=== PATIENT | male | born 1990 | race Caucasian/White ===

== ENCOUNTER 2017-08-29 18:00 | Outpatient (CLI) | payer OTHER | END 2017-08-29 18:01 | disposition critical access hospital (66) | LOC: EMS 18:00 | PROVIDERS: ATTEND Surgery | DX: R55 Syncope and collapse (principal); R51 Headache; W22.8XXA Striking against or struck by other objects, initial encounter; W18.39XA Other fall on same level, initial encounter; Y93.G1 Activity, food preparation and clean up; Y92.511 Restaurant or cafe as the place of occurrence of the external cause; Y99.0 Civilian activity done for income or pay | CPT/HCPCS: A0425; A0427 ==

== ENCOUNTER 2017-08-29 18:18 | Emergency (ER) | payer OTHER ==
--- NOTE | 2017-08-29 20:41 | ED Physician Documentation ---
PD HPI SYNCOPE - Stated complaint Stated Complaint: SYNCOPE - Chief complaint Chief Complaint: Neuro - History obtained from History obtained from: Patient, Family - History of Present Illness Witnessed: Witnessed Timing - onset: Today Duration: Seconds Preceding symptoms: Light headed Associated symptoms: No: Seizure Contributing factors: Decreased PO intake Injury occurred: Fell, Head injury Similar symptoms before: Has not had sx before Recently seen: Not recently seen - Additional information Additional information: Patient is a 27 year old male with no significant past medical history who is presenting to the emergency department for syncope. patient states that he was called into work this evening. patient states that he had an episode where he got dizzy and passed out. Patient states that he hit his head. Patient does not know how long he was out for but thinks only about a minute. Upon initial evaluation in the emergency department patient states that he feels better and just wants to go home. Review of Systems Constitutional: denies: Fever, Chills Eyes: denies: Loss of vision, Photophobia Ears: denies: Ear pain, Drainage/discharge Nose: denies: Congestion Throat: denies: Sore throat Cardiac: denies: Chest pain / pressure, Palpitations, Calf pain Respiratory: denies: Cough GI: denies: Nausea, Vomiting, Constipation, Diarrhea : reports: Reviewed and negative Skin: denies: Lesions, Abrasion (s), Laceration (s) Neurologic: reports: Syncope, Headache, Head injury. denies: Seizure Immunocompromised: denies: Immunocompromised PD PAST MEDICAL HISTORY - Present Medications Home Medications: Ambulatory Orders Medication Instructions Recorded Confirmed No Known Home Medications [No 08/29/17 08/29/17 Known Home Medications] - Allergies Allergies/Adverse Reactions: Allergies Allergy/AdvReac Type Severity Reaction Status Date / Time No Known Drug Allergies Allergy Verified 08/29/17 18:30 - Social History Does the pt smoke?: No Smoking Status: Never smoker PD ED PE NORMAL - Vitals Vital signs reviewed: Yes - General General: Alert and oriented X 3, No acute distress, Well developed/nourished - HEENT HEENT: PERRL, Moist mucous membranes, Pharynx benign, Dentition benign - Neck Neck: Supple, no meningeal sign, No bony TTP - Cardiac Cardiac: RRR, No murmur - Respiratory Respiratory: No respiratory distress - Abdomen Abdomen: Soft, Non tender, Non distended - Derm Derm: Normal color, Warm and dry, No rash - Extremities Extremities: No deformity - Neuro Neuro: Alert and oriented X 3, asphalt blender 2-12 intact, No motor deficit, No sensory deficit, Normal speech - Psych Psych: Normal mood, Normal affect PD ED PE EXPANDED - HEENT HEENT: Head injury (mild tenderness to medial brow, no step offs, no laceration , no gross deformity) Results - Vitals Vitals: Vital Signs - 24 hr 08/29/17 08/29/17 08/29/17 18:28 20:45 20:55 Temperature 36.0 C L Heart Rate 68 66 66 Respiratory 16 16 16 Rate Blood Pressure 113/58 L 113/68 113/68 O2 Saturation 98 100 100 Oxygen O2 Source Room air PD MEDICAL DECISION MAKING - ED course Complexity details: reviewed old records, re-evaluated patient, considered differential, d/w patient, d/w family ED course: Patient was seen and examined at bedside. Patient was well appearing and stated that he did not want any work up at this time. patient states that he did not eat or drink anything and he things that it might be it. Patient states that he will come back if it happens again, but he just wanted to go home. Patient required no further work up and was stable for discharge with outpatient follow up. Departure - Departure Disposition: 01 Home, Self Care Clinical Impression: Syncope Condition: Good Instructions: ED Syncope Vasovagal Follow-Up: primary,care provider [Other] Comments: It is difficult to say what caused your symptoms exactly without checking thing out. It is important that you return to the emergency department if your symptoms return or worsen at any time. Discharge Date/Time: 08/29/17 20:57
[2017-08-29 20:47] VITALS: BP 113/68
== END 2017-08-29 20:57 | disposition home or self-care (01) ==
LOC: ED 18:18
DX: R55 Syncope and collapse (principal)
CPT/HCPCS: 99283

== ENCOUNTER 2018-02-09 22:34 | Emergency (ER) | payer MEDICAID ==
[2018-02-09] MEDS ORDERED: CLINDAMYCIN 900 MG/50 ML 50 ML IV ONE (22:47)
[2018-02-09] MEDS ORDERED: KETOROLAC 60 MG/2 ML VIAL IVP STA (22:47)
--- NOTE | 2018-02-09 22:49 | ED Physician Documentation ---
History of Present Illness - Stated complaint Stated Complaint: FACE SWELLING - Chief complaint Chief Complaint: Heent - History obtained from History obtained from: Patient - History of Present Illness Timing: Other (He has had ongoing problems with the left mandibular molar. Saw dentist 3 weeks ago put him on antibiotics which he has been intermittently compliant with. Swelling came back yesterday with moderate pain but no fevers. Over the left jaw.) Review of Systems Constitutional: denies: Fever, Chills Throat: denies: Oral lesions / sores Cardiac: denies: Chest pain / pressure, Palpitations Respiratory: denies: Dyspnea, Cough PD PAST MEDICAL HISTORY - Present Medications Home Medications: Ambulatory Orders Medication Instructions Recorded Confirmed Clindamycin [Cleocin] 300 mg PO Q6H 10 Days capsule 02/09/18 Meloxicam [Mobic] 7.5 mg PO BIDWM PRN #15 tablet 02/09/18 - Allergies Allergies/Adverse Reactions: Allergies Allergy/AdvReac Type Severity Reaction Status Date / Time No Known Drug Allergies Allergy Verified 08/29/17 18:30 - Social History Does the pt smoke?: No Smoking Status: Never smoker PD ED PE NORMAL - Vitals Vital signs reviewed: Yes - General General: Alert and oriented X 3, No acute distress - HEENT HEENT: Other (Left mandibular second molar is almost completely a cavity with some overlying swelling but no fluctuance that I can I incise and drain, mild facial cellulitis. No sublingual edema or trismus.) - Neck Neck: Supple, no meningeal sign, No bony TTP - Neuro Neuro: Alert and oriented X 3, Normal speech Results - Vitals Vitals: Vital Signs - 24 hr 02/09/18 22:38 Temperature 36.7 C Heart Rate 83 Respiratory 18 Rate Blood Pressure 156/84 H O2 Saturation 99 Oxygen O2 Source Room air Departure - Departure Disposition: Home, Self Care Clinical Impression: Facial cellulitis Condition: Good Record reviewed to determine appropriate education?: Yes Instructions: ED Tooth Pain Prescriptions: Clindamycin [Cleocin] 300 mg PO Q6H 10 Days capsule Meloxicam [Mobic] 7.5 mg PO BIDWM PRN #15 tablet PRN Reason: Pain Comments: It is very important that she follow-up with a dentist. When it comes to dental problems like yours, the emergency department can only offer a short- term solution to your long-term problem. A couple of low cost options for dental care include: [facility] in [place], calls [phone] for an appointment Or [facility] in [place], call [phone] for an appointment. Your blood pressure was elevated today on check into the emergency department. This does not mean that you have hypertension, it is a common phenomenon to come to the emergency department and have elevated blood pressure. I recommend that you see your primary care physician within the week to have it rechecked when you are feeling better.
[2018-02-10 00:40] VITALS: BP 138/86
== END 2018-02-10 00:30 | disposition home or self-care (01) ==
LOC: ED 22:34
DX: L03.211 Cellulitis of face (principal); R03.0 Elevated blood-pressure reading, without diagnosis of hypertension
CPT/HCPCS: 96365; 96375; 99283

== ENCOUNTER 2022-12-09 23:27 | Outpatient (CLI) | payer MEDICAID | END 2022-12-09 23:28 | disposition left against medical advice (07) | LOC: EMS 23:27 | DX: R06.00 Dyspnea, unspecified (principal); X00.0XXA Exposure to flames in uncontrolled fire in building or structure, initial encounter ==